=== PATIENT | female | born 1980 | race Caucasian/White ===

== ENCOUNTER 2018-07-20 08:43 | Day surgery (SDC) | payer MEDICARE, OTHER ==
[2018-07-20] MEDS ORDERED: FENTAnyl 50 MCG/ML VIAL (10:06)
[2018-07-20] MEDS ORDERED: LIDOCAINE 2% (SDV) 5 ML INJ (10:06)
[2018-07-20] MEDS ORDERED: PROPOFOL 200 MG INJ (10:06)
[2018-07-20] MEDS ORDERED: PROPOFOL 40 ML (10:06)
[2018-07-20] MEDS ORDERED: EPHEDrine SULFATE 50 MG/5 ML SYG IV (10:30)
[2018-07-20] MEDS ORDERED: MEPERIDINE 25 MG INJ IV (10:30)
[2018-07-20] MEDS ORDERED: FENTAnyl 50 MCG/ML VIAL IV ×3 (10:30)
[2018-07-20] MEDS ORDERED: IPRATROPIUM (NEB) 0.5 MG/2.5 ML AMP HHN (10:30)
[2018-07-20] MEDS ORDERED: TRIMETHOBENZAMIDE 100 MG/ML VIAL IM (10:30)
[2018-07-20] MEDS ORDERED: ONDANSETRON 4 MG INJ IV (10:30)
[2018-07-20] MEDS ORDERED: OXYCODONE/ACETAMINOPHEN (5/325) TAB PO ×2 (10:30)
[2018-07-20] MEDS ORDERED: LABETALOL HCL 20MG INJ IV (10:30)
[2018-07-20] MEDS ORDERED: HYDROmorphONE 1 MG/5 ML IV SYRINGE IV ×3 (10:30)
[2018-07-20] MEDS ORDERED: ALBUTEROL 0.083% (NEB) 2.5 MG/3 ML AMP HHN (10:30)
[2018-07-20] MEDS ORDERED: hydrALAzine 20 MG INJ IV (10:30)
[2018-07-20] MEDS ORDERED: MIDAZOLAM 1 MG/ML 2 ML INJ IV (10:30)
[2018-07-20] MEDS ORDERED: DIPHENHYDRAMINE 50 MG INJ IV (10:30)
== END 2018-07-20 12:27 | disposition home or self-care (01) ==
LOC: GIL 08:43
DX: K29.50 Unspecified chronic gastritis without bleeding (principal); K25.7 Chronic gastric ulcer without hemorrhage or perforation; K29.80 Duodenitis without bleeding; E03.9 Hypothyroidism, unspecified
CPT/HCPCS: 43239; 84703; 88305; 88312

== ENCOUNTER 2019-01-14 07:10 | Day surgery (SDC) | payer MEDICARE, OTHER ==
[2019-01-14] MEDS ORDERED: PROPOFOL 20 ML (08:59)
== END 2019-01-14 11:47 | disposition home or self-care (01) ==
LOC: GIL 07:10
DX: K29.30 Chronic superficial gastritis without bleeding (principal)
CPT/HCPCS: 43239; 84703; 88305; 88312